=== PATIENT | male | born 2000 | race Caucasian/White ===

== ENCOUNTER 2022-11-14 10:52 | Emergency (ER) | payer OTHER, BC, MEDICAID, SELFPAY ==
[2022-11-14 11:12] VITALS: BP 118/67; PULSE 78; RESP 20; TEMP 36.6; O2SAT 100
--- NOTE | 2022-11-14 11:13 | ED.SKABFB ---
HPI - Skin/Abscess/Foreign Bdy General Chief complaint: Skin/Abscess/Foreign Body Stated complaint: Rash Time Seen by Provider: 11/14/22 11:21 Source: patient, RN notes reviewed and old records reviewed Mode of arrival: ambulatory Limitations: no limitations History of Present Illness HPI narrative: 21 presents to the [facility] with a itchy painful rash to the left lower leg. States it started as a sunburn 1 week ago on Sunday. Has been scratching it and over the last couple days redness, inflammation and increased warmth to the anterior lower portion of the left leg Onset (ago): week(s) (1) Related Data Allergies Allergy/AdvReac Type Severity Reaction Status Date / Time No Known Allergies Allergy Verified 11/14/22 11:23 Review of Systems Review of Systems: All systems reviewed & are unremarkable except as noted in HPI and below Constitutional: Constitutional: Reports no additional constitutional complaints Eyes: Eyes: Reports no additional eye complaints ENT: Reports system reviewed and no additional complaints, except as documented Cardiovascular: Cardiovascular: Reports no additional cardiovascular complaints, Denies chest pain and Denies dyspnea Respiratory: Respiratory: Reports no additional respiratory complaints, Denies chest congestion, Denies cough and Denies dyspnea Gastrointestinal: Gastrointestinal: Reports no additional gastrointestinal complaints, Denies abdominal pain, Denies nausea and Denies vomiting Musculoskeletal: Musculoskeletal: Reports no additional musculoskeletal complaints Integumentary/Breasts: Skin/Breast: Reports as per HPI Neurologic: Reports system reviewed and no additional complaints, except as documented Psychiatric: Psychiatric: Reports no additional psychiatric complaints Allergic/Immunologic: Allergic/Immunologic: Reports no additional allergic/immunologic complaints PMFSH Comments At the time of my signature, I reviewed and agree with the nursing past medical, surgical, social, and family history. There is no relevant family history pertinent to the patient complaint. Exam Const: General: cooperative, healthy appearing, comfortable, no acute distress, well developed, alert and well nourished Nutritional Appearance: well nourished Orientation/consciousness: patient oriented x3 Limitations: no limitations HENMT: Head: normal to inspection Ears: hearing grossly normal bilaterally and external ears normal Face/Nose/Sinus: Normal external nose present, Normal nares present, Normal nasal mucous membranes and turbinates present and normal facial exam Face and sinus: normal facial exam Eyes: General: appearance normal, both eyes and all related structures Alignment and Position: alignment normal Periorbital: periorbital findings normal Pupils: Equal, round and reactive pupils present EOM: EOMs intact bilaterally Neck: Neck: normal visual inspection, full ROM, no lymphadenopathy and no meningeal signs Chest: Chest palpation & inspection: normal inspection of the chest Resp: Effort & Inspection: normal respiratory effort and able to speak in complete sentences Auscultation: clear to auscultation bilaterally, no crackles, no rales, no rhonchi and no wheezes Cardio: Rate: regular rate Rhythm: regular rhythm Back/Spine/Pelvis: Cervical Spine: cervical ROM normal Thoracic/Lumbar Spine: No thoracic spinal tenderness Skin: General skin exam: normal color and no rashes or lesions noted Lesions: no lesions Rashes: no rashes Full body images: 1. Erythema with increased warmth to the indurated area. Scratch patel noted superficial. No fluctuance. Area measures 4 x 3 cm with no streaking, not circumferential Neuro: General: patient oriented x3, gait normal, tone normal, moves all extremities and no meningeal signs Cranial nerves: Yes Equal, round and reactive pupils present Cognition (Neuro): normal cognition Speech: normal speech Gait exam (Neuro): Normal gait prese
== END 2022-11-14 11:32 | disposition home or self-care (01) ==
PROVIDERS: Emergency Provider Nurse Practitioner
DX: L03.116 Cellulitis of left lower limb (principal)
CPT/HCPCS: 99203; G0463

== ENCOUNTER 2024-01-22 08:53 | Emergency (ER) | payer OTHER, BC, SELFPAY ==
--- NOTE | 2024-01-22 08:57 | ED.URI ---
HPI - URI/Sore Throat General Chief Complaint: Upper Respiratory Infection Stated Complaint: Sore Throat Time Seen by Provider: 01/22/24 08:54 Source: patient Mode of arrival: ambulatory Limitations: no limitations History of Present Illness HPI Narrative: Nick is a 23-year-old male patient presenting to the clinic today with complaints of sore throat, nasal drainage, and feeling feverish. He reports symptoms started 2 days ago. Has not checked his temperature. States the a co-worker had COVID. Related Data Allergies Allergy/AdvReac Type Severity Reaction Status Date / Time No Known Allergies Allergy Verified 01/22/24 09:23 Review of Systems Review of Systems: Pertinent positives per HPI. Patient denies any rash, headache, visual changes, dizziness, cough, shortness of breath, chest pain, palpitations, nausea, vomiting, diarrhea, constipation, abdominal pain, or any urinary issues. PMFSH Comments At the time of my signature, I reviewed and agree with the nursing past medical, surgical, social, and family history. There is no relevant family history pertinent to the patient complaint. Exam Narrative: General: Well-developed, well nourished, in no apparent distress Head: Normocephalic, atraumatic Eyes: Pupils equally round and reactive to light bilaterally, EOM intact, sclera and conjunctive clear, no discharge, lids normal Ears: TMs intact and clear, ear canals clear, no drainage, grossly hearing normal. Nose: Nares patent, clear discharge, no inflammation, no sinus tenderness. Mouth: Oropharynx red without lesions or masses, good dentition, MMM. Neck: Supple, trachea midline, no enlargement of anterior or posterior cervical nodes, no thyroid masses or goiter palpable. Cardio: Regular rate and rhythm, s1 and s2 normal, no murmur appreciated. Resp: Clear to auscultation bilaterally anteriorly and posteriorly, no rhonchi, rales, wheezing or rubs Course Course Emergency Course: Portions of this record may have been created with voice recognition software. Level of Care: Express Care Visit Vital Signs Vital signs: Vital signs reviewed MDM - URI/Sore Throat MDM Narrative Medical decision making narrative: At the time of visit patient is resting comfortably on the exam table. Patient appears to be nontoxic. Labs: Strep and COVID testing was negative in the clinic today. We will send strep culture. Plan: I suspect patient has URI/pharyngitis. We will send strep for culture. Supportive measures were discussed with the patient and they voiced understanding discharge instructions and agrees to treatment plan. Return precautions reviewed Differential Diagnosis Differential diagnosis: Likely upper respiratory infection, otitis media, sinusitis, viral infection, bronchitis, influenza, pharyngitis and other (COVID) Discharge Plan Discharge Clinical Impression: Pharyngitis Qualifiers: Pharyngitis/tonsillitis etiology: unspecified etiology Qualified Code(s): J02.9 - Acute pharyngitis, unspecified Upper respiratory infection Qualifiers: URI type: unspecified URI Qualified Code(s): J06.9 - Acute upper respiratory infection, unspecified Patient Disposition: Home, Self-Care Condition: Stable Instructions: Antibiotic Form, Pharyngitis (ED), Cold Symptoms (ED) Additional Instructions: COVID and strep testing was negative. We will send strep for culture and if this comes back positive we will contact you in place you on antibiotics at that time. Increase fluids and stay well hydrated Tylenol/motrin for pain/fever Flonase and OTC antihistamines as directed Vicks vapor rub to open sinuses Sinus rinses for congestion Cepacol spray, cough drops, throat lozenges, warm tea with honey/lemon, gargle salt water to soothe throat BRAT diet for diarrhea Clear liquids x 24 hours then advance as tolerated for nausea/vomiting Go to the ED if you develop a worsening in your condition- high feve
[2024-01-22 09:07] VITALS: BP 119/36; PULSE 65; RESP 14; TEMP 37.3; O2SAT 99
[2024-01-22 09:43] LABS: EDCOVIDSCREEN Negative (Negative); EDSTREPNEGPOS1 Negative (Negative)
== END 2024-01-22 09:57 | disposition home or self-care (01) ==
PROVIDERS: Emergency Provider Nurse Practitioner Family
DX: J02.9 Acute pharyngitis, unspecified (principal); J06.9 Acute upper respiratory infection, unspecified; Z20.822 Contact with and (suspected) exposure to COVID-19
CPT/HCPCS: 87081; 87635; 87880; 99213; G0463

== ENCOUNTER 2024-06-20 16:05 | Emergency (ER) | payer BC, OTHER, SELFPAY ==
[2024-06-20 16:18] VITALS: BP 128/59; PULSE 76; RESP 16; TEMP 37.4; O2SAT 100
[2024-06-20 16:36] LABS: EDCOVIDSCREEN Negative (Negative); EDINFLUASCREEN Negative (Negative); EDINFLUBSCREEN Negative (Negative)
--- NOTE | 2024-06-20 16:40 | ED_ITS ---
HPI - URI/Sore Throat General Chief Complaint: Upper Respiratory Infection Stated Complaint: Headache/Cough/Sore Throat Time Seen by Provider: 06/20/24 16:09 Source: patient Mode of arrival: ambulatory Limitations: no limitations History of Present Illness HPI Narrative: Patient is a 23-year-old male who presents with headache, cough, sore throat and congestion that started this morning. Patient has not taken anything for symptoms. Denies any fever, chills, nausea, vomiting, diarrhea. Reports the flu is going on his work. Related Data Allergies Allergy/AdvReac Type Severity Reaction Status Date / Time No Known Allergies Allergy Verified 06/20/24 16:16 Review of Systems Review of Systems: All systems reviewed & are unremarkable except as noted in HPI and below Constitutional: Constitutional: Denies chills, Denies fatigue, Denies fever(s), Reports headache(s), Denies malaise and Denies weakness Eyes: Eyes: Denies blurry vision, Denies itchy eyes and Denies loss of vision ENT: Denies otalgia, Reports headache(s), Reports nasal congestion, Denies sinus pain and Reports sore throat Cardiovascular: Cardiovascular: Denies chest pain, Denies irregular heart rhythm and Denies dyspnea Respiratory: Respiratory: Reports cough and Denies dyspnea Gastrointestinal: Gastrointestinal: Denies abdominal pain, Denies diarrhea, Denies nausea and Denies vomiting Musculoskeletal: Musculoskeletal: Denies back pain, Denies myalgias and Denies arthralgias Integumentary/Breasts: Skin/Breast: Denies pruritus and Denies rash Neurologic: Reports headache(s), Denies loss of vision and Denies weakness Psychiatric: Psychiatric: Reports no additional psychiatric complaints Endocrine: Endocrine: Denies fatigue Allergic/Immunologic: Allergic/Immunologic: Denies itchy eyes PMFSH Comments At time of signature, agree with nursing past medical, surgical, social and family history. There is no relevant family history pertinent to the presenting complaint. Exam Const: General: cooperative, healthy appearing, comfortable, no acute distress and well nourished Nutritional Appearance: well nourished Orientation/consciousness: patient oriented x3 Limitations: no limitations HENMT: Head: normal to inspection, normocephalic and atraumatic Ears: hearing grossly normal bilaterally, external ears normal, TM's normal bilaterally, EAC's normal and no periauricular adenopathy Face/Nose/Sinus: Normal external nose present, Abnormal mucous membranes and turbinates present erythematous bilateral and diffuse, normal facial exam, sinuses nontender and face symmetric Face and sinus: normal facial exam, sinuses nontender and face symmetric Mouth: Yes Normal oral and palatal mucosa present, Yes lip normal, Yes tongue normal, Yes Normal salivary glands and ducts present, Yes oropharynx normal and Yes moist mucous membranes Teeth and gingiva: dentition normal Throat: posterior oropharynx normal, tonsils normal and uvula midline Eyes: General: appearance normal, both eyes and all related structures Alignment and Position: alignment normal and position normal Periorbital: periorbital findings normal Eyelids: eyelids normal Pupils: Equal, round and reactive pupils present Neck: Neck: normal visual inspection, full ROM, no lymphadenopathy and supple Chest: Chest palpation & inspection: normal inspection of the chest and normal palpation of entire chest wall Resp: Effort & Inspection: normal respiratory effort and able to speak in complete sentences Auscultation: clear to auscultation bilaterally, no crackles, no rales, no rhonchi and no wheezes Cardio: Rate: regular rate Rhythm: regular rhythm Heart sounds: S1 normal heart sound present and S2 normal heart sound present GI: Inspection: normal to inspection Skin: General skin exam: normal color and no rashes or lesions noted Neuro: General: patient oriented x3 and moves all extremities Cranial nerves: Yes Equal, round and reactive pupils present Speech: normal speech Gait exam (Neuro): Normal gait present Extrem: General: normal to inspection, full ROM and no edema Psych: Appearance: grossly normal and well kempt Mental Status: mental status grossly normal Speech and movement: Normal speech and movement present Affect: normal affect Attitude: cooperative Thought process: Normal thought process present Course Course Emergency Course: Discharge instructions reviewed with patient, as well as provided in writing per nursing staff. The instructions also include specific and strict return/GO TO THE ER as well as f/u information. All questions have been answered, and the patient deny any further questions with discharge and discharge plan. Portions of this record may have been created with voice recognition software Level of Care: Express Care Visit Vital Signs Vital signs: Vital Signs Temperature 37.4 C 06/20/24 16:18 Pulse Rate 76 06/20/24 16:18 Respiratory Rate 16 06/20/24 16:18 Blood Pressure 128/59 L 06/20/24 16:18 Pulse Oximetry 100 06/20/24 16:18 Oxygen Delivery Room Air 06/20/24 16:18 Temperature 37.4 C 06/20/24 16:18 Pulse Rate 76 06/20/24 16:18 Respiratory Rate 16 06/20/24 16:18 Blood Pressure 128/59 L 06/20/24 16:18 Pulse Oximetry 100 06/20/24 16:18 Oxygen Delivery Room Air 06/20/24 16:18 Reviewed MDM - URI/Sore Throat MDM Narrative Medical decision making narrative: Pt well hydrated appearing, in no respiratory distress, hemodynamically stable. Recommend supportive care. The patient is stable at time of discharge the clinical impression was discussed and the patient was given the opportunity to ask questions, which were addressed as completely as possible given the information available at present. Anticipatory guidance and return to care precautions were discussed and the importance of primary care follow-up was stressed and encouraged. The patient voiced understanding of the plan, indications to return, and the need for follow-up. Differential diagnosis considered: Bowden virus, strep pharyngitis, allergic rhinitis, upper respiratory tract infection, sinusitis, rhinosinusitis, nasopharyngitis. viral pharyngitis, otitis media, otitis externa, otitis effusion, foreign body, cerumen impaction, viral syndrome, and influenza.? Exam findings show no acute concerns or changes; patient is non-toxic appearing and is in no distress.? Patient is appropriate for outpatient treatment and follow- up.? Medical Records Attestation: I reviewed the patient's medical records. Lab Data Attestation: I reviewed the patient's lab results. Labs: Lab Results 06/20/24 Range/Units 16:34 POC Influenza A Ag Negative (Negative) POC Influenza B Ag Negative (Negative) POC SARS CoV-2 Ag Negative (Negative) Discharge Plan Discharge Clinical Impression: Influenza-like illness Patient Disposition: Home, Self-Care Condition: Stable Instructions: Viral Syndrome (ED) Additional Instructions: Your symptoms are due to a viral illness, which is not treated with antibiotics. Viral symptoms can be present for up to a few weeks. -For fever/pain, you may take: Tylenol 650-1000mg by mouth every 4-6 hours. Do not exceed 4000mg in 24 hours. Advil (Ibuprofen) 600 mg by mouth every 6 hours. Do not exceed 2400mg in 24 hours. 8 AM: Tylenol 11 AM: Ibuprofen 2 PM: Tylenol 5 PM: Ibuprofen 8 PM: Tylenol 11 PM: Ibuprofen 2 AM: Tylenol 5 AM: Ibuprofen -Antihistamine medication such as Benadryl/Zyrtec at night and Claritin/Angelia during the day can help improve symptoms. -Use Flonase twice a day for 5 days then daily to help reduce the inflammation and dry up your sinuses. -You can also use Sudafed behind the pharmacy counter(12 or 24 hour). Be sure to drink plenty of water with these medications at least 8 ounces with every dose and it is important to drink 8 to 10 glasses of water per day. Water is a natural decongestant -Eat and drink things that are easy to swallow, like tea or soup, or popsicles. -Oral rinses such as: Salt water gargles and/or may use topical anesthetic (eg. Chloraseptic spray) or lozenges to relieve dryness or throat pain). -Frequent hand washing or hand online merchandising manager is one of the best ways to prevent spread of infection. -Using a vaporizer or humidifier at night will also help thin secretions and help with coughing up phlegm. -Follow up with primary care provider in 3-5 days if condition is not improving - For new or worsening symptoms go directly to the nearest ER Patient Language: Armenian Prescriptions: New benzonatate 100 mg capsule 100 mg PO BID PRN (Reason: cough) Qty: 14 0RF fluticasone propionate [Flonase Allergy Relief] 50 mcg/actuation spray,suspension 1 spray intranasal DAILY Qty: 16 0RF Rx Instructions: administer into each nostril Follow-up/Referrals: PHYSICIAN,REFRIGERATION SYSTEMS INSTALLER [Primary Care Provider] - Stand Alone Forms: Work/School Release IP Time of Disposition: 16:55
== END 2024-06-20 17:20 | disposition home or self-care (01) ==
PROVIDERS: Emergency Provider Nurse Practitioner Family
DX: R51.9 Headache, unspecified (principal); R05.9 Cough, unspecified; J02.9 Acute pharyngitis, unspecified; Z20.822 Contact with and (suspected) exposure to COVID-19
CPT/HCPCS: 87426; 87804; 99213; G0463

== ENCOUNTER 2024-07-23 21:44 | Emergency (ER) | payer BC, OTHER, SELFPAY ==
--- OUTSIDE RECORDS SUMMARY | 2024-07-23 21:46 | XMS_ITS | Clinical Summary ---
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 Gender Identity Not on file Sexual Orientation Not on file Plan of Treatment Health Maintenance Due Date Last Done Comments Hepatitis C Virus (HCV) Screening 2001 Meningococcal B Immunization (1 of 2 - Standard) 2017 Influenza Immunization (#1) 2024 12/0 10/2017, 03/02/2017, 01/14/2013, Additional history exists SARS-COV-2 Immunization (2023- season) 2024 Respiratory Syncytial Virus (RSV) Immunization (Adult) (1 - 1-dose 75+ series) 2076 Pneumococcal Immunization Combined Aged Out 01/09/2002, 2001 No longer eligibl e based on patient's age to complete this topic Hepatitis B Immunization Completed 002, 01/09/2002, 2001 Measles Mumps Rubella (MMR) Immunization Discontinued 10/26/2005 Polio (IPV) Immunization Discontinued 006, 01/09/2002, 2001 Hepatitis A Immunization Discontinued 008, 10/27/2004, 03/15/2004 Varicella Immunization Discontinued 11/15/2007 DTaP/Tdap/Td Immunization Discontinued 2012, 10/26/2005, 03/10/2002, Additional history exists TdaP Immunization Completed 01/14/2013 Human Papillomavirus (HPV) Immunization Completed 05/12/2014, 01/06/2014, 10/06/2013 Meningococcal Immunization (ACWY) Completed 12/21/2017, 01/14/2013 Rotavirus Immunization Aged Out No lo nger eligible based on patient's age to complete this topic
--- OUTSIDE RECORDS SUMMARY | 2024-07-23 21:46 | XMS_ITS | Clinical Summary ---
Author Organization [facility] Address [address] [place] [address] Care Team Providers Care Asphalt Mixer Name Role Phone Constantin Zhou MD Primary Care Provider [phone] Source Comments [facility],non-owned Affiliates and Associated Physician Practices is amultiple site organization consisting of ambulatory clinics and hospital sitesin [place], [place], [place] and [place]. This disclosure is being madepursuant to the Care Everywhere program and may not contain all information available regarding this patient. Last updated 18.[facility] Allergies No known active allergies Medications * Be aware that medications may not be up to date on this document. Alwaysverify current medications with the patient. Medication Sig Dispensed Refills Start Date End Date Status methylphenidate 24hr (RITALIN LA) 20 MG capsule Take 20 mg by mouth every morning Active ibuprofen (MOTRIN) 600 MG tablet Take 1 tablet by mouth every 6 hours as needed for Pain CP Dr darius drake 30 tablet 03/22/2017 Active oxyCODONE, immediate release, (ROXICODONE) 5 MG tablet Take 1 tablet by mouth every 4 hours as needed for Pain 3 tablet 04/05/2018 Active acetaminophen (TYLENOL) 160 MG/5ML suspension Take 20 mL by mouth every 6 hours 04/05/2018 Active amoxicillin-clavulana te (AUGMENTIN) 875-125 MG tablet Take 1 tablet by mouth 2 times daily with morning and evening meal 14 tablet 04/06/2018 Active Active Problems Problem Noted Date Diagnosed Date Acute appendicitis 04/04/2018 Abdominal pain, generalized 04/03/2018 Insurance coverage problems 01/13/2016 Overview (01/13/2016): [place] with very limited scabies treatment formulary and step edit requirements 01/13/2016 discussed limitations Jose 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 12/29/2014 Overview (07/31/2015): 2015 IMO Updt Femur fracture, right 04/07/2014 Resolved Problems Problem Noted Date Diagnosed Date Resolved Date Scabies 01/13/2016 02/10/2016 Overview (01/13/2016): acute onset May 2015, dx scabies, Rx OTC lice shampoo Qwk x 4 (pt & brother) without success 01/13/16 scabies prep pos feces; Rx ivermectin for pt, permethrin for contacts Lives in 2 households (4 and 5 members) Family History Medical History Relation Name Comments Allergies Brother 1 Skin problem Brother 2 itchy rash, ons et Allergies Father Allergies Mother Allergies Paternal Aunt Allergies Paternal Grandfather Allergies Sister Relation Name Status Comments Brother 1 Brother 2 Father Mother Paternal Aunt Paternal Grandfather Sister Social History Tobacco Use Types Packs/Day Years Used Date Smoking Tobacco: Passive Smo ke Exposure - Never Smoker Smokeless Tobacco: Never Alcohol Use Standard Drinks/Week Comments No 0 (1 standard drink = 0.6 oz pur e alcohol) Sex and Gender Information Value Date Recorded Sex Assigned at Not on file Gender Identity Not on file Sexual Orientation Not on file Last Filed Vital Signs Vital Sign Reading Time Taken Comments Blood Pressure 114/55 04/05/2018 4:05 PM MELLOWING MACHINE OPERATOR Pulse 70 04/05/2018 4:05 PM MELLOWING MACHINE OPERATOR Temperature 36 C (96.8 F) 04/05/2018 4:05 PM MELLOWING MACHINE OPERATOR Respiratory Rate 20 04/05/2018 4:05 PM MELLOWING MACHINE OPERATOR Oxygen Saturation 100% 04/05/2018 4:05 PM MELLOWING MACHINE OPERATOR Inhaled Oxygen Concentration 100% 03/18/2014 4 :00 PM MELLOWING MACHINE OPERATOR Weight 80 kg (176 lb 5.9 oz) 04/03/2018 7:08 PM MELLOWING MACHINE OPERATOR Height 171 cm (5' 7.32 ) 08/13/2017 8:19 PM CDT Body Mass Index - - Plan of Treatment Health Maintenance Due Date Last Done Comments HIV SCREENING 2016 HPV VACCINE (1 - Male 3-dose series) 2016 MENINGOCOCCAL (Group B) VACC INE SHARED DECISION-MAKING (1 of 2 - Standard) 2017 HEPATITIS C SCREENING 09/01/2019 DTAP/TDAP/TD VACCINES (1 - Tdap) 2020 HEPATITIS B VACCINE (1 of 3 - 19+ 3-dose series) 2020 COVID-19 VACCINE (1 - 2023-2 5 season) 2024 INFLUENZA VACCINE (#1) 2024 DEPRESSION SCREENING 05/07/2024 ZOSTER VACCINE (1 of 2) 09/06/2051 HIB VACCINE Aged Out No longer eligi ble based on patient's age to complete this topic MENINGOCOCCAL GROUPS A/C/Y/W VACCINE Aged Out No longer eligible b ased on patient's age to complete this topic PNEUMOCOCCAL VACCINE Aged Out No long er eligible based on patient's age to complete this topic Medical Devices Implanted Type Area Asp Net C Developer Device Identifier Shelf Expiration Date Model / Serial / Lot Scrw Theodore Non Oli Full Thrd 3.5mm X 34mm Implanted:Qty: 1 on 03/18/2014 by Nichole Chiang MD at [facility] Right: [employer] - 34 / / 16 Hole Plate Implanted:Qty: 1 on 03/18/2014 by Nichole Chiang MD at [facility] Right: Femur 0- 16 / / Description:16 hole plate Scrw Theodore Non Oli Full Thrd 3.5mm X 24mm Implanted:Qty: 1 on 03/18/2014 by Nichole Chiang MD at [facility] Right: [employer] -35 24 / / Scrw Theodore Non Oli Full Thrd 3.5mm X 28mm Implanted:Qty: 4 on 03/18/2014 by Nichole Chiang MD at [facility] Right: [employer] 28 / / Scrw Theodore Non Oli Full Thrd 3.5mm X 30mm Implanted:Qty: 2 on 03/18/2014 by Nichole Chiang MD at [facility] Right: [employer] 30 / / Scrw Theodore Non Oli Full Thrd 3.5mm X 32mm Implanted:Qty: 1 on 03/18/2014 by Nichole Chiang MD at [facility] Right: [employer] 32 / / Scrw Theodore Non Oli Full Thrd 3.5mm X 46mm Implanted:Qty: 1 on 03/18/2014 by Nichole Chiang MD at [facility] Right: [employer] 46 / / Scrw Theodore Non Oli Full Thrd 3.5mm X 26mm Implanted:Qty: 3 on 03/18/2014 by Nichole Chiang MD at [facility] Right: [employer] 26 / / Explanted Type Area Asp Net C Developer Device Identifier Shelf Expiration Date Model / Serial / Lot Scrw Theodore Non Oli Full Thrd 3.5mm X 26mm Explanted:Qty: 1 on 03/18/2014 at [facility] Right: [employer] 26 / / Scrw Theodore Non Oli Full Thrd 3.5mm X 36mm Explanted:Qty: 1 on 03/18/2014 by Nichole Chiang MD at [facility] Right: [employer] 36 / / Scrw Theodore Non Oli Full Thrd 3.5mm X 22mm Explanted:Qty: 1 on 03/18/2014 at [facility] Right: [employer] 22 / / Advance Directives * Full Code (Latest Code Status on File) Date Activated Date Inactivated Comments 04/04/2018 11:08 AM 04/05/2018 7:03 PM * Full Code Date Activated Date Inactivated Comments 04/03/2018 11:31 PM 04/04/2018 10:42 AM Care Teams Asphalt Mixer Relationship Specialty Start Date End Date Constantin Zhou MD [address] [address] PCP - General 01/03/11
[2024-07-23 23:38] LABS: Influenza A QL RT-PCR Negative (Negative); Influenza B QL RT-PCR Negative (Negative); RSV RNA, RT-PCR Positive (Negative); SARS-CoV-2 RNA PCR Negative (Negative)
--- OUTSIDE RECORDS SUMMARY | 2024-07-24 00:54 | XMS_ITS | Clinical Summary ---
Author Organization 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
--- OUTSIDE RECORDS SUMMARY | 2024-07-24 00:54 | XMS_ITS | Clinical Summary ---
Author Organization [facility] Address [address] [place] [place] [address] Care Team Providers Care Heat Treating Furnace Tender Name Role Phone Constantin Zhou MD Primary Care Provider [phone] Source Comments [facility],non-owned Affiliates and Associated Physician Practices is amultiple site organization consisting of ambulatory clinics and hospital sitesin [place], [place], [place] and [place]. This disclosure is being madepursuant to the Care Everywhere program and may not contain all information available regarding this patient. Last updated 18.[facility] Allergies No known active allergies Medications * [...] 04/03/2018 Insurance coverage problems 01/13/2016 Overview (01/13/2016): [place] with very limited scabies treatment formulary and [...] Comments Blood Pressure 114/55 04/05/2018 4:05 PM DIGITAL STRATEGIST Pulse 70 04/05/2018 4:05 PM DIGITAL STRATEGIST Temperature 36 C (96.8 F) 04/05/2018 4:05 PM DIGITAL STRATEGIST Respiratory Rate 20 04/05/2018 4:05 PM DIGITAL STRATEGIST Oxygen Saturation 100% 04/05/2018 4:05 PM DIGITAL STRATEGIST Inhaled Oxygen Concentration 100% 03/18/2014 4 :00 PM DIGITAL STRATEGIST Weight 80 kg (176 lb 5.9 oz) 04/03/2018 7:08 PM DIGITAL STRATEGIST Height 171 cm (5' 7.32 ) 08/13/2017 [...] this topic Medical Devices Implanted Type Area [employer] Lead Device Identifier Shelf Expiration Date Model / Serial / Lot Scrw Theodore Non Oli Full Thrd 3.5mm X 34mm Implanted:Qty: 1 on 03/18/2014 by Nichole Chiang MD at [facility] Right: [employer] - 34 / / 16 Hole Plate Implanted:Qty: 1 on 03/18/2014 by Nichole Chiang MD at [facility] Right: Femur 0- 16 / / Description:16 hole plate Scrw Theodore Non Oli Full Thrd 3.5mm X 24mm Implanted:Qty: 1 on 03/18/2014 by Nichole Chiang MD at [facility] Right: [employer] -35 24 / / Scrw [place] Non Oli Full Thrd 3.5mm X 28mm Implanted:Qty: 4 on 03/18/2014 by Nichole Chiang MD at [facility] Right: [employer] 28 / / Scrw Theodore Non Oli Full Thrd 3.5mm X 30mm Implanted:Qty: 2 on 03/18/2014 by Nichole Chiang MD at [facility] Right: [employer] 30 / / Scrw Theodore Non Oli Full Thrd 3.5mm X 32mm Implanted:Qty: 1 on 03/18/2014 by Nichloe Chiang MD at [facility] Right: [employer] 32 / / Scrw Theodore Non Oli Full Thrd 3.5mm X 46mm Implanted:Qty: 1 on 03/18/2014 by Nichole Chiang MD at [facility] Right: [employer] 46 / / Scrw Theodore Non Oli Full Thrd 3.5mm X 26mm Implanted:Qty: 3 on 03/18/2014 by Nichole Chiang MD at [facility] Right: [employer] 26 / / Explanted Type Area [employer] Lead Device Identifier Shelf Expiration Date Model / Serial / Lot Scrw Theodore Non Oli Full Thrd 3.5mm X 26mm Explanted:Qty: 1 on 03/18/2014 at [facility] Right: [employer] 26 / / Scrw Theodore Non Oli Full Thrd 3.5mm X 36mm Explanted:Qty: 1 on 03/18/2014 by Nichole Chiang MD at [facility] Right: [employer] 36 / / Scrw Theodore Non Oli Full Thrd 3.5mm X 22mm Explanted:Qty: 1 on 03/18/2014 at [facility] Right: [employer] 22 / / Advance Directives * Full Code (Latest Code Status on File) Date Activated Date Inactivated Comments 04/04/2018 11:08 AM 04/05/2018 7:03 PM * Full Code Date Activated Date Inactivated Comments 04/03/2018 11:31 PM 04/04/2018 10:42 AM Care Teams Heat Treating Furnace Tender Relationship Specialty Start Date End Date Constantin Zhou MD [address] [address] PCP - General 01/03/11
--- NOTE | 2024-07-24 00:57 | ED.GENADULT ---
HPI - General Adult General Chief complaint: Unspecified Stated complaint: i got some kind of infection going on Time Seen by Provider: 07/24/24 00:37 Source: patient Mode of arrival: ambulatory Limitations: no limitations History of Present Illness HPI narrative: This is a 23-year-old male that presents to emergency department for cold symptoms ongoing over the last 4 days. Reports cough, congestion, rhinorrhea. Denies fevers. Related Data Allergies Allergy/AdvReac Type Severity Reaction Status Date / Time No Known Allergies Allergy Verified 06/20/24 16:16 Review of Systems Review of Systems: CONSTITUTIONAL: Denies fever ENT: Reports rhinorrhea, congestion RESPIRATORY: Reports cough All systems reviewed & are unremarkable except as noted in HPI and below PMFSH Past Medical History Medical History (Updated 07/24/24 @ 01:00 by Rachele Castellano PA-C) No active medical problems Social History Social History (Updated 07/24/24 @ 01:00 by Rachele Castellano PA-C) Smoking status: Never smoker Exam Narrative: GENERAL: Well-appearing, well-nourished, and in no acute distress. HEAD: Normocephalic, atraumatic. EYES: EOMI. ENT: Nares clear, no rhinorrhea or epistaxis. Mucous membranes moist. Oropharynx without tonsillar hypertrophy exudate or other lesions. Bilateral TMs pearly mcgovern non-bulging NECK: Supple. No adenopathy or masses. CHEST: Clear to auscultation. No respiratory distress. No wheezes rales or rhonchi HEART: Regular rate and rhythm. No murmur heard. Normal peripheral pulses. EXTREMITIES: Normal range of motion. No edema. SKIN: Warm, dry, no rash. NEURO: No focal deficits. Alert and oriented x3. PSYCH: Normal mood and affect Course Course Emergency Course: Patient updated on his workup and agrees with plan of care Medical Decision Making MDM Narrative Medical decision making narrative: Patient presents to the emergency department for cold symptoms. He is afebrile and nontoxic appearing. Lungs are clear on exam. Patient is RSV positive. Instructed on further care a viral infection. He is to follow up with primary provider. He was given warnings to return to the ER Lab Data Lab results reviewed: Yes I reviewed the patient's lab results. Labs: Lab Results 07/23/24 Range/Units 22:52 Influenza A (RT-PCR) Negative (Negative) Influenza B (RT-PCR) Negative (Negative) RSV (RT-PCR) Positive A (Negative) SARS-CoV-2 RNA (RT-PCR) Negative (Negative) Critical Care Time Critical Care Time Critical Care Time: No Discharge Plan Discharge Clinical Impression: Respiratory syncytial virus (RSV) Qualifiers: RSV infection type: unspecified Qualified Code(s): B33.8 - Other specified viral diseases Patient Disposition: Home, Self-Care Condition: Stable Instructions: RSV (Respiratory Syncytial Virus) Infection (ED) Additional Instructions: Return to the emergency department for worsening symptoms, or any other concerns Remain well-hydrated, get plenty of rest. Take Tylenol or Motrin [id number] for pain as needed. Flonase for nasal congestion. Zyrtec for runny nose. Follow up with primary care doctor Patient Language: Burkinan Prescriptions: No Action benzonatate 100 mg capsule 100 mg PO BID PRN (Reason: cough) Qty: 14 0RF fluticasone propionate [Flonase Allergy Relief] 50 mcg/actuation spray,suspension 1 spray intranasal DAILY Qty: 16 0RF Rx Instructions: administer into each nostril Follow-up/Referrals: Gloria Grace MD [Physician] - PHYSICIAN,DEDICATED DRIVER [Primary Care Provider] -
[2024-07-24 00:59] VITALS: BP 128/80; PULSE 64; RESP 14; TEMP 36.6; O2SAT 97
[2024-07-24 01:05] VITALS: BP 124/86; PULSE 75; RESP 15; O2SAT 97
== END 2024-07-24 01:06 | disposition home or self-care (01) ==
PROVIDERS: Emergency Medicine; Emergency Provider Physician Assistant
DX: R05.9 Cough, unspecified (principal); B97.4 Respiratory syncytial virus as the cause of diseases classified elsewhere; Z20.822 Contact with and (suspected) exposure to COVID-19
CPT/HCPCS: 87637; 99283